=== PATIENT | female | born 1950 | race Caucasian/White ===

== ENCOUNTER → 2021-12-16 10:24 | Outpatient (CLI) | payer OTHER, SELFPAY ==
[2021-12-16 11:37] LABS: Appearance Urine UA CLEAR; Bilirubin Urine UA NEGATIVE (NEGATIVE); Color Urine UA YELLOW; Glucose Urine UA NEGATIVE (Negative); Ketones Urine UA NEGATIVE (NEGATIVE); Leukocyte Esterase Urine UA NEGATIVE (NEGATIVE); Nitrite Urine UA NEGATIVE (Negative); Occult Blood Urine UA NEGATIVE (Negative); Protein Urine UA NEGATIVE (Negative); Urobilinogen Urine UA 0.2 E.U./dL (0.2)
[2021-12-16 11:39] LABS: Add Manual Diff / Slide Review NO; Basophils Absolute Auto 0 /uL (0-100); Basophils Percent Auto 0.4 % (0-2); Eosinophils Absolute Auto 200 /uL (0-450); Eosinophils Percent Auto 2.3 % (2-4); Hematocrit 39.4 % (36-46); Hemoglobin 13.8 g/dL (12.0-16.0); Lymphocytes Absolute Auto 2100 /uL (1100-4500); Lymphocytes Percent Auto 31.6 % (25-40); Mean Corpuscular HGB Conc 34.9 % (30-36); Mean Corpuscular Hemoglobin 32.3 PG (26-34); Mean Corpuscular Volume 92.5 fL (80-100); Monocytes Absolute Auto 400 /uL (0-900); Monocytes Percent Auto 5.9 % (3-14); Neutrophils Absolute Auto 4100 /uL (1500-7000); Neutrophils Percent Auto 59.8 % (50-75); Platelet Count 244 X10^3/uL (150-400); Red Blood Cell Count 4.26 X10^6/uL (4.0-5.2); Red Cell Distribution Width 12.9 % (11.6-14.8); White Blood Cell Count 6.8 X10^3/uL (4.5-11.0)
[2021-12-16 11:42] LABS: Prothrombin Time 10.8 SECONDS (10.1-12.7); pH Urine UA 6.5 (4.5-8.0)
[2021-12-16 11:43] LABS: Bacteria Urine None Seen; Culture Indicated Urine Cult Not Indicated; RBC Urine None Seen (0-5/HPF); Urine Comments Microscopic Normal; WBC Urine None Seen (0-5/HPF)
[2021-12-16 11:45] LABS: PTT Partial Thromboplastin Tim 39 SECONDS (26.4-36.2)
[2021-12-16 11:48] LABS: Hemoglobin A1C% w Est Avg Glu 5.5 % (4.0-6.0)
[2021-12-16 11:51] LABS: Blood Urea Nitrogen 19 mg/dL (7-17); Calcium 9.4 mg/dL (8.4-10.2); Carbon Dioxide 30 mmol/L (22-32); Chloride 103 mmol/L (98-107); Glucose 100 mg/dL (80-110); HEMOLYSIS < 15 (0-50); Potassium 4.1 mmol/L (3.4-5.1); Sodium 141 mmol/L (137-145)
== END ==
LOC: LAB 10:36 → RESP 10:46
PROVIDERS: PCP Internal Medicine; Referring Provider Orthopaedic Surgery; Visit Provider Orthopaedic Surgery
DX: Z01.818 Encounter for other preprocedural examination (principal); Z51.81 Encounter for therapeutic drug level monitoring; R73.9 Hyperglycemia, unspecified; Z01.812 Encounter for preprocedural laboratory examination; N39.0 Urinary tract infection, site not specified
CPT/HCPCS: 36415; 80048; 81001; 83036; 85025; 85610; 85730; 93005; 93010

== ENCOUNTER → 2022-01-16 10:59 | Outpatient (CLI) | payer OTHER, SELFPAY ==
[2022-01-16 14:03] LABS: COVID19 -Nasal RAPID Negative (Negative)
== END ==
PROVIDERS: PCP Internal Medicine; Visit Provider Family Medicine Sleep Medicine
DX: Z20.822 Contact with and (suspected) exposure to COVID-19 (principal)
CPT/HCPCS: 87635; C9803

== ENCOUNTER 2022-01-17 05:59 | Day surgery (SDC) | payer OTHER, SELFPAY ==
[2022-01-13 08:37] VITALS: BMI 33.4
[2022-01-17] VITALS (11 sets, daily range): BP systolic 107–144; BP diastolic 47–75; PULSE 60–85; RESP 12–19; TEMP 35.6–37.3; O2SAT 97–99; BMI 33.1
--- NOTE | 2022-01-17 06:33 | DI.RAD.S_ITS ---
PROCEDURE: XR HIP W PEL IF DONE RT 2V INDICATIONS: GUZMAN post op right TECHNIQUE: AP pelvis and lateral view of the right hip acquired. COMPARISON: None. FINDINGS: Bones: Patient is status post right hip arthroplasty, with hardware components in expected positions. The hip joint appears congruent. The visualized bony structures appear intact. Soft tissues: Overlying postoperative changes are noted. No suspicious soft tissue densities. IMPRESSION: Postoperative changes of total right hip arthroplasty. Dictated by: Ivan Pritchard M.D. on 01/17/2022 at 15:11 Approved by: Ivan Pritchard M.D. on 01/17/2022 at 15:13
[2022-01-17] MEDS: ACETAMINOPHEN 325 MG TABLET 975 MG PO (07:11)
[2022-01-17] MEDS: LACTATED RINGERS 1,000 ML 42 ML IV ×2 (07:20→09:21)
[2022-01-17] MEDS: VANCOMYCIN 1,000 MG/200 ML PIGGYBACK 200 MG IV (07:33)
--- NOTE | 2022-01-17 07:40 | PM.PREOP ---
Pre-operative Note COVID-19 COVID-19 status: Negative Interval Note History & Physical reviewed/Exam performed by Physician: Yes Changes to H&P: No
--- NOTE | 2022-01-17 07:41 | PM.OP.1 ---
Operative Date/Time/Diagnoses Date of procedure: 01/17/22 Time of procedure: 08:00 Pre-op diagnosis: right hip OA Post-op diagnosis: same Procedure & Clinicians Procedure: right total hip arthroplasty Same procedure as scheduled: Yes Indications: The patient has had progressively worsening right hip pain with radiographic changes consistent with arthritis. Non-operative management has failed and the patient has requested total hip replacement. The risks, benefits and alternatives to surgery were discussed with the patient prior to proceeding. Risks discussed included, but were not limited to, failure to relieve pain, leg length discrepancy, dislocation, stiffness, infection, nerve damage, deep venous thrombosis, pulmonary embolism, stroke, coma, heart attack, permanent paralysis and , as well as the potential need for eventual revision of the prosthetic. Surgeon: Tara Bansal Geothermal Field Technician: Oly May Anesthesia Type: General and Spinal Operative Notes Findings: Severe right hip osteoarthritis, adequate stability, adequate bone Closure Type: primary Specimen(s): none sent Prosthetic devices, grafts, tissues, transplants, or devices: Bansal and Nephew size 52 R3 cup, 36 neutral poly liner, size 7 standard offset anthology, 36 x -3 Oxinium head, one 6.5 mm screw Applied: drain(s) Estimated Blood Loss (mL): 250 Blood products transfused: none Procedure in detail: The patient was seen in the pre-operative area, where the patient identified the right hip as the operative site and this was marked with my initials. The patient received pre-operative antibiotics and was taken to the operating room and placed on the operative table in the left lateral decubitus position after satisfactory anesthesia. A bicycle service technician out was performed. The right leg was prepared from the ankle to the iliac crest with ChloroPrep in the usual fashion and draped through sterile drapes. The hip was approached through an approximately 20 cm incision centered over the greater trochanter and curving gently posteriorly as it went proximally. This was carried sharply to the fascia mary jane, which was divided and retracted with a self retaining retractor. The trochanteric bursa was excised with care being taken to avoid the sciatic nerve, which was identified and protected throughout the case. The short external rotators were incised and the capsulomuscular flap was raised and tagged for later repair. The hip was dislocated, and a femoral neck osteotomy performed approximately 15 mm above the lesser trochanter. Retractors were placed around the femur. The canal was opened with a box cutting osteotome, followed by a T handled reamer and a lateralizing reamer. The chili pepper broach was then used, followed by sequential broaching until there was good stability of the broach in the femur. Retractors were placed to expose the acetabulum. The labrum and central soft tissues were removed. Reaming was performed initially going up in 2 mm increments, then 1 mm increments until good bite was obtained with an odd sized reamer. The cup 1 mm larger than the last reamer was then inserted using the appropriate anteversion guides. A trial neutral liner was placed. The broach was placed in the canal. A trial head and neck were then placed and the hip relocated and checked for leg length and stability. An intraoperative film confirmed the component position and no evidence of fracture. The patient was stable in the position of sleep, of squatting, and could be put through a range of motion with 45 degrees internal rotation without dislocation. At 90 degrees flexion, internal rotation to 70? was possible before dislocation. A 6.5 mm screw was used to further stabilized the acetabulum. This was felt to be satisfactory and the appropriate components were opened, and the trials were removed. The acetabular liner was impacted into position. The final stem was then impacted into the prepared femoral canal. The hip was meticulously irrigated with normal saline. Finally the femoral head was impacted onto the stem. The acetabulum was cleared of all material and the hip relocated one final time. The capsulomuscular flap was then repaired to the greater trochanter though an awl hole using the tag sutures. The short external rotators were repaired with a nonabsorbable suture. A deep drain was placed and brought out anteriorly. The fascia mary jane was closed with Vicryl. The subcutaneous layer was closed with barbed sutures and skin [place]. A fran dressing was applied and the patient was taken to recovery having tolerated the procedure well. Complications: none Post-operative Condition: stable Disposition: Acute Care Plan for aftercare: The patient will be maintained on a standard total hip replacement protocol with weight bearing as tolerated and posterior hip precautions. The patient will receive Aspirin and sequential compression devices for DVT prophylaxis. The patient will be discharged home when safe for the home environment.
--- NOTE | 2022-01-17 08:00 | DI.RAD.S_ITS ---
PROCEDURE: XR PELVIS 1-2V INDICATIONS: INNER OP PIC TECHNIQUE: Intra-operative view of the pelvis and hip acquired. COMPARISON: None. FINDINGS: Bones: Intraoperative devices prior to placement of arthroplasty prostheses are in expected positions. No fractures or suspicious bony lesions. Soft tissues: Overlying surgical retractors are present, along with other intraoperative changes. IMPRESSION: Intraoperative views of total right hip replacement. Dictated by: Ivan Pritchard M.D. on 01/17/2022 at 10:16 Approved by: Ivan Pritchard M.D. on 01/17/2022 at 10:17
[2022-01-17] MEDS: TRANEXAMIC ACID 1,000 MG VIAL 2000 MG INJ ×2 (08:03→10:07)
[2022-01-17] MEDS: CEFAZOLIN 2 GM/20 ML SYRINGE IV ×2 (08:05→15:44)
--- NOTE | 2022-01-17 08:30 | SUR.OPER ---
Lateral on padded OR bed. Gel axillary roll. Arms secured on padded armboard with pillow supporting top arm. Padded hip positioner braces x4 - anterior and posterior chest and pelvis. Additional gel pad used anterior pelvis. Gel pad under bottom leg from knee to foot and secured with tape over sheet. Glasses are in glass case and brought back to pre-op from OR and placed in personal belonging bag.
[2022-01-17] MEDS: BUPIVACAINE LIPOSOME 266 MG/20 ML VIAL INJ (09:24)
[2022-01-17] MEDS: BUPIVACAINE 0.25% (PF) 60 ML, EPINEPHrine 0.3 MG INJ (09:26)
[2022-01-17] MEDS: SODIUM CHLORIDE IRRIG SOLUTION 250 ML, POVIDONE-IODINE SPONGE STICKS 1 APPLIC IRR (09:27)
[2022-01-17] MEDS: EPINEPHrine 1 MG/10 ML SYRINGE INJ (09:32)
[2022-01-17] MEDS: ONDANSETRON 4 MG/2 ML INJ IV ×2 (10:51→14:26)
[2022-01-17] MEDS: OXYCODONE/ACETAMINOPHEN 5/325 TABLET 1 TAB PO (10:51)
--- NOTE | 2022-01-17 13:35 | PT.IIE ---
Current Diagnoses Unilateral primary osteoarthritis, right hip (01/17/22) Surgery Performed Operation Date: 01/17/22 07:45 Actual Procedures p Total Hip Arthroplasty(Right) - Tara Bansal MD Medical History (Last Reviewed 01/16/22 @ 08:35 by Gonzalo Maldonado RN) Anesthesia CAD (coronary artery disease) Former smoker HLD (hyperlipidemia) HTN (hypertension) Statin intolerance Physical Therapy Inpatient Evaluation/Re-Eval M1 PT/OT-IP Prior Functional Status Start: 01/17/22 15:20 Freq: NEEDED Status: Active Protocol: Document 01/17/22 13:35 AB (Rec: 01/17/22 15:33 AB [id number]) Medical Review Prior Functional Status Medical History Reviewed Yes Communication able to make needs known Mobility and Gait pt stated that she is independent with all mobilities and ambulation without AD Social History Household Members spouse Living Arrangements House Number of Floors (Floors) One Floor Number of Stairs To Enter/Railing? no steps to enter Home Environment High Toilet,Walk in Shower Home Equipment Front Wheel Walker,Straight Cane,Hand Held Shower,Grab Bars In Shower Additional Social History Comment pt has an adjustable bed. M2 PT-IP Current Condition Start: 01/17/22 15:20 Freq: NEEDED Status: Active Protocol: Document 01/17/22 13:35 AB (Rec: 01/17/22 15:33 AB [email or web address]) Physical Therapy Current Condition Current Condition Evaluation Date 01/17/22 Treatment Diagnosis s/p R GUZMAN posterior approach; difficulty in walking Onset Date 01/17/22 M3 PT-IP Subjective Start: 01/17/22 15:20 Freq: NEEDED Status: Active Protocol: Document 01/17/22 13:35 AB (Rec: 01/17/22 15:33 AB [id number]) Subjective Physical Therapy Visit Type Type Initial Evaluation Visit Start Time 13:35 Visit Stop Time 14:30 Total Visit Minutes 55 Number of FIFTH HAND Visits 0 Physical Therapy Visit Comments Patient Comments agreeable to do PT Therapy Pain Assessment Pain When Pain Assessed At Rest Pain Present Pain Present Pain Reported Location Right Lower Leg Intensity 6 Scale Used Numeric (0 - 10) Pain Management Techniques Distraction,Modification of Treatment,Re-positioning M4 PT-IP Mobility and Gait Start: 01/17/22 15:20 Freq: NEEDED Status: Active Protocol: Document 01/17/22 13:35 AB (Rec: 01/17/22 15:33 AB [id number]) PT-Bed Mobility Assessment Supine to Sit Supine to Sit Standby Assistance Sit to Supine Sit to Supine Moderate Assistance,1 Person Assistance PT-Transfer Assessment Sit to and From Stand Sit to and from Stand Minimal Assistance,Moderate Assistance,1 Person Assistance ,Use of Upper Extremities Equipment Transfer Assistive Device Gait Belt,Front Wheeled Walker Orthotic/Prosthetic Devices or Brace: No Comments Mobility Comments educated pt and spouse regarding hip posterior precautions. BP in supine: 129/66. completed supine to sit SBA. able to sit on EOB SBA. cued for posture. BP in sittin/64. completed sit to stand min to mod A and cues for safety and hip precautions. ambulated in room using FWW min to mod A ~ 25 ft. pt sat back on EOB. c /o nausea. nurse informed. BP checked: 93/54. pt completed sit to supine mod A with LE mobility to bed. positioned pt in bed. BP checked: 105/59 . call light and table placed within reach. Gait Assessment Gait Gait Assistance Required: Minimum Assistance,Moderate Assistance Distance (Feet) 25 Able to Maintain Weight Bearing Status Yes During Gait Assistive Devices Assistive Device Gait Belt,Front Wheeled Walker Orthotic/Prosthetic Devices or Brace: No Gait Deviations General Gait Pattern Decreased Stride Length, Decreased Feet Clearance Factors Limiting Gait Function Factors Limiting Gait Function Decreased Activity Tolerance, Decreased Strength,Limited Range of Motion,Pain,Poor Balance,Poor Safety Awareness PT-Balance Assessment Sitting Balance and Reactions Static Sitting Balance Ability Good Dynamic Sitting Balance Ability Good Standing Balance and Reactions Static Standing Balance Ability Fair Dynamic Standing Balance Ability Fair Device Used FWW M5 PT-IP Objective Assessments Start: 01/17/22 15:20 Freq: NEEDED Status: Active Protocol: Document 01/17/22 13:35 AB (Rec: 01/17/22 15:33 AB [id number]) Orientation Orientation/Cognition Level of Alertness Alert Orientation Name,Place,Situation Language Function Ability No Deficits Noted Safety Awareness Decreased Safety Awareness Gross Range of Motion Lower Extremity ROM Assessment Within Functional Limits Strength Lower Extremity Strength Assessment Right Impaired Hip 3+/5 Knee 4-/5 Coordination Assessment Gross Coordination Gross Coordination WNL Sensation Assessment Sensation Gross Sensation WNL Muscle Tone Muscle Tone WNL Yes M6 PT-IP Treatment Start: 01/17/22 15:20 Freq: NEEDED Status: Active Protocol: Document 01/17/22 13:35 AB (Rec: 01/17/22 15:33 AB [id number]) Physical Therapy Treatment Education Education Provided Precautions,Weight Bearing Status,Post-Op Packet,Safety M7 PT-IP Assessment and Plan Start: 01/17/22 15:20 Freq: NEEDED Status: Active Protocol: Document 01/17/22 13:35 AB (Rec: 01/17/22 15:33 AB [email or web address]) PT Summary Assessment and Plan Potential Rehabilitation Potential Fair Status of Condition at Evaluation Evolving Summary Impairments Pain,ROM,Strength,Balance, Coordination,Sensation,Tone, Cognition,Bed Mobility, Transfers,Gait,Activity Tolerance Assessment Summary pt s/p R GUZMAN posterior approach and just had surgery this morning. pt with decrease BP after ambulation with c/o nausea limiting mobility. pt will likely progress during hospital stay. pt's spouse will assist pt at home and will conduct caregiver training when appropriate. will continue to assess progress. Goals Bed Mobility Goal Independent Transfer Goal Independent,Front Wheeled Walker Gait Goal Independent,Front Wheel Walker Gait Distance 250 Days to Meet Goals 5 Frequency of Treatment Frequency Of Treatment Twice a Day Treatment Plan Physical Therapy Treatment Plan Bed Mobility Training,Transfer Training,Gait Training, Therapeutic Exercise,Balance Retraining,Post Op Education, Discharge Planning,Hot or Cold Pack,Neuromuscular Re-ed, Coordination Retraining,Manual Therapy Precautions Posterior Hip Precautions No Hip Flexion > 90 degrees,No Hip Internal Rotation,No Hip Adduction Weight Bearing Status Weight Bearing Status Weight Bear as Tolerated Allowed Weight Bearing Amount (enter % RLE WBAT or #) (%) Recommendations To Nursing Amount of Assist Needed 1 Person Assist Discharge Recommendations PT Discharge Recommendations Home with Assistance, Outpatient PT Transportation Needs at Discharge Private Vehicle
[2022-01-17] MEDS: LACTATED RINGERS 1,000 ML 125 ML IV ×2 (14:26→22:24)
[2022-01-17] MEDS: OXYCODONE IR 5 MG TABLET PO (15:44)
[2022-01-17] MEDS: ACETAMINOPHEN 325 MG TABLET 650 MG PO ×2 (15:44→21:29)
[2022-01-17] MEDS: DOCUSATE 100 MG CAPSULE PO (21:29)
[2022-01-17] MEDS: MELATONIN 3 MG TABLET PO (21:29)
[2022-01-17] MEDS: diphenhydrAMINE 25 MG TABLET PO (21:29)
[2022-01-17] MEDS: ASPIRIN EC 81 MG TABLET PO (21:29)
[2022-01-17] MEDS: METOPROLOL ER 50 MG TABLET PO (21:30)
[2022-01-18] VITALS: BP 134/64; PULSE 76; RESP 18; TEMP 37.1; O2SAT 97
[2022-01-18 00:10] VITALS: BP 134/64; PULSE 76
[2022-01-18] MEDS: CEFAZOLIN 2 GM/20 ML SYRINGE IV (01:10)
[2022-01-18 04:00] VITALS: BP 120/64; PULSE 78; RESP 19; TEMP 36.7; O2SAT 97
[2022-01-18] MEDS: OXYCODONE IR 5 MG TABLET PO (04:55)
[2022-01-18 04:56] LABS: Hematocrit 33.8 % (36-46); Hemoglobin 11.5 g/dL (12.0-16.0)
--- NOTE | 2022-01-18 07:51 | PM.DS.1 ---
History of Present Illness History of Present Illness Date Patient Seen: 01/18/22 Time Patient Seen: 07:51 Chief complaint: Hip pain Narrative: Patient denies fever or chills. No nausea vomiting. Patient has assistance at home. Discharge Providers Provider Discharge Date: 01/18/22 Primary care physician: Christel Deleon MD Consults: 01/13/22 09:39 Consult to Anesthesiology Routine Comment: Consulting Provider: Anesthesiologist Reason for consultation: Surgeon requested re: Cardiac 01/17/22 06:33 Consult to Anesthesiology Routine Comment: Consulting Provider: Anesthesiologist Reason for consultation: Regional block for post operative pain control 01/17/22 11:19 Consult to Discharge Planning Routine Comment: Consult to Physical Therapy Evaluate & Treat Comment: Physician Instructions: post op GUZMAN protocol Consult to Respiratory Therapy Evaluate & Treat Comment: Physician Instructions: Evaluate and treat Discharge provider: Jean Pierre Gallagher PA-C Summary Hospital Course Discharge Diagnosis: Right hip osteoarthritis Hospital Course: Procedure: right total hip arthroplasty Same procedure as scheduled: Yes Indications: The patient has had progressively worsening right hip pain with radiographic changes consistent with arthritis. Non-operative management has failed and the patient has requested total hip replacement. The risks, benefits and alternatives to surgery were discussed with the patient prior to proceeding. Risks discussed included, but were not limited to, failure to relieve pain, leg length discrepancy, dislocation, stiffness, infection, nerve damage, deep venous thrombosis, pulmonary embolism, stroke, coma, heart attack, permanent paralysis and , as well as the potential need for eventual revision of the prosthetic. Surgeon: Tara Bansal Link Trainer Maintenance Man: Oly May Anesthesia Type: General and Spinal Operative Notes Findings: Severe right hip osteoarthritis, adequate stability, adequate bone Closure Type: primary Specimen(s): none sent Prosthetic devices, grafts, tissues, transplants, or devices: Bansal and Nephew size 52 R3 cup, 36 neutral poly liner, size 7 standard offset anthology, 36 x -3 Oxinium head, one 6.5 mm screw Applied: drain(s) Estimated Blood Loss (mL): 250 Blood products transfused: none Patient admitted to the hospital for right total hip arthroplasty. Patient consented to the same. Patient underwent right total hip arthroplasty by Dr. Bansal on January 17, 2022. Patient back in her room recovering well as in stable condition. Patient will be discharged home today after physical therapy if safe for home environment. Status at Discharge Cognitive/behavioral status at discharge: oriented Functional status at discharge: uses cane/walker Overall status at discharge: patient is progressing back to baseline Exam Vital Signs (past 8 hours): - 01/18/22 00:00 01/18/22 00:10 01/18/22 04:00 Temperature 98.7 F 98.1 F Pulse Rate 76 76 78 Respiratory Rate 18 19 Blood Pressure 134/64 134/64 120/64 Pulse Oximetry 97 97 Oxygen Delivery Method Room Air Oxygen Flow Rate 0 Narrative Exam Narrative: 71-year-old female resting comfortably in bed in no apparent distress. Fran dressing is on and function. Neurovascular status is intact bilateral lower extremities. 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 Discharge Plan Discharge Plan Patient Disposition: Home Discharge orders & Medications Discharge Orders: Discharge (Order); Ordered 01/18/22 Ordered By: Jean Pierre Gallagher Prescriptions: New acetaminophen 325 mg Tablet 650 mg PO TID Qty: 60 0RF aspirin 81 mg Tablet,Delayed Release (Dr/Ec) 81 mg PO DAILY Qty: 60 0RF Rx Instructions: Patient should not start the aspirin if she has started Plavix Continued metoprolol succinate 50 mg Tablet Extended Release 24 Hr 50 mg PO BEDTIME 0RF hydrochlorothiazide 12.5 mg Tablet 12.5 mg PO QAM 0RF melatonin 3 mg Tablet 3 mg PO BEDTIME 0RF diphenhydramine HCl 25 mg Capsule 25 mg PO BEDTIME 0RF naproxen sodium [Aleve] 220 mg Tablet 220 mg PO QPM PRN (Reason: Pain) 0RF Follow up/Referrals: Christel Deleon MD [Primary Care Provider] - Tara Bansal MD [Physician] - As previously scheduled (Follow up with Dr Bansal on 02/01/2022 @ 1:30 pm at [facility]) Diet/Activity/Treatments Diet: Diet as Tolerated Activity: Weight-bearing as tolerated, posterior hip precautions Cold/Heat Therapy: Ice as needed Skin/Wound/Dressing Care Report to your healthcare provider any signs of infection, such as:: chills, fever, increased pain, unusual drainage and unusual redness Dressing: Geoff wrap may be removed in 48-72 hours, leave fran dressing in place. Follow fran dressing instructions Visit Report/Discharge Packet Instructions: DI for Hip Replacement Stand Alone Forms: Surgery Discharge Discharge Data Primary Care Provider: Christel Deleon Attending Provider: Tara Bansal
[2022-01-18 08:00] VITALS: BP 131/56; PULSE 60; RESP 16; O2SAT 96
[2022-01-18 09:10] VITALS: PULSE 63; RESP 14; O2SAT 97
--- NOTE | 2022-01-18 09:42 | PT.IPTN ---
Current Diagnoses Unilateral primary osteoarthritis, right hip (01/17/22) Surgery Performed Operation Date: 01/17/22 07:45 Actual Procedures p Total Hip Arthroplasty(Right) - Tara Bansal MD Physical Therapy Treatment Note M2 PT-IP Current Condition Start: 01/17/22 15:20 Freq: NEEDED Status: Active Protocol: Document 01/17/22 13:35 AB (Rec: 01/17/22 15:33 AB [id number]) Physical Therapy Current Condition Current Condition Evaluation Date 01/17/22 Treatment Diagnosis s/p R GUZMAN posterior approach; difficulty in walking Onset Date 01/17/22 M3 PT-IP Subjective Start: 01/17/22 15:20 Freq: NEEDED Status: Active Protocol: Document 01/18/22 09:18 KS (Rec: 01/18/22 11:59 KS [id number]) Subjective Physical Therapy Visit Type Type Treatment Note Visit Start Time 09:18 Visit Stop Time 09:42 Total Visit Minutes 24 Notes Pt present for caregiver training. Number of ASSISTED LIVING ASSISTANT Visits 1 Physical Therapy Visit Comments Patient Comments agreeable to do PT M4 PT-IP Mobility and Gait Start: 01/17/22 15:20 Freq: NEEDED Status: Active Protocol: Document 01/18/22 09:18 KS (Rec: 01/18/22 11:59 KS [id number]) PT-Bed Mobility Assessment Supine to Sit Supine to Sit Standby Assistance Sit to Supine Sit to Supine Contact Guard Assistance Scooting Scooting to Edge of Bed Contact Guard Assistance Scooting Up and Down in Bed Standby Assistance PT-Transfer Assessment Sit to and From Stand Sit to and from Stand Contact Guard Assistance, Minimal Assistance,1 Person Assistance,Use of Upper Extremities Equipment Transfer Assistive Device Gait Belt,Front Wheeled Walker Orthotic/Prosthetic Devices or Brace: No Transfers Transfer Destination Bed,Toilet Transfer Technique Pt ambulated w/ FWW Transfer Ability Level of Assist Contact Guard Assistance, Minimal Assistance,1 Person Assistance,Use of Upper Extremities Comments Mobility Comments Pt on bed upon arrival w/ in room. SBA for sup<> sit and CGA for scooting EOB. Pt then sit<>stand w/ FWW and CGA/Min A w/ cues for hand placement. She then ambulate to toilet and after voiding used grab bars and CGA to stand. Pt ambulated additional 100 ft w/ FWW SBA w/ good stability and proper use of FWW. Pt ambulated back to bed, demonstrated gait belt application and FWW stabilization and how to assist pt sit<>Stand. Pt performed additional sit<> stand w/ her and then sit<>sup CGA. Good awareness of exercises and precautions. Pt left in bed w/ all needs in reach. Gait Assessment Gait Gait Assistance Required: Standby Assistance Distance (Feet) 100 Able to Maintain Weight Bearing Status Yes During Gait Assistive Devices Assistive Device Gait Belt,Front Wheeled Walker Orthotic/Prosthetic Devices or Brace: No Gait Deviations General Gait Pattern Decreased Stride Length, Decreased Feet Clearance Factors Limiting Gait Function Factors Limiting Gait Function Decreased Activity Tolerance, Decreased Strength,Limited Range of Motion,Pain,Poor Balance,Poor Safety Awareness Comments Gait Comments Stable gait, good use of FWW. Able to ambulate safely w/ FWW SBA. Stair Climbing Assessment Comments Stair Climbing Comments No steps at home. PT-Balance Assessment Sitting Balance and Reactions Static Sitting Balance Ability Good Dynamic Sitting Balance Ability Good Standing Balance and Reactions Static Standing Balance Ability Good Dynamic Standing Balance Ability Good Device Used FWW M5 PT-IP Objective Assessments Start: 01/17/22 15:20 Freq: NEEDED Status: Active Protocol: Document 01/17/22 13:35 AB (Rec: 01/17/22 15:33 AB [id number]) Orientation Orientation/Cognition Level of Alertness Alert Orientation Name,Place,Situation Language Function Ability No Deficits Noted Safety Awareness Decreased Safety Awareness Gross Range of Motion Lower Extremity ROM Assessment Within Functional Limits Strength Lower Extremity Strength Assessment Right Impaired Hip 3+/5 Knee 4-/5 Coordination Assessment Gross Coordination Gross Coordination WNL Sensation Assessment Sensation Gross Sensation WNL Muscle Tone Muscle Tone WNL Yes M6 PT-IP Treatment Start: 01/17/22 15:20 Freq: NEEDED Status: Active Protocol: Document 01/18/22 09:18 KS (Rec: 01/18/22 11:59 KS [id number]) Physical Therapy Treatment Education Education Provided Precautions,Weight Bearing Status,Post-Op Packet,Safety Other Treatments Other Treatment Performed Completed caregiver trg w/ pts . M7 PT-IP Assessment and Plan Start: 01/17/22 15:20 Freq: NEEDED Status: Active Protocol: Document 01/18/22 09:18 KS (Rec: 01/18/22 11:59 KS [id number]) PT Summary Assessment and Plan Potential Rehabilitation Potential Fair Status of Condition at Evaluation Evolving Summary Impairments Pain,ROM,Strength,Balance, Coordination,Sensation,Tone, Cognition,Bed Mobility, Transfers,Gait,Activity Tolerance Assessment Summary Pt SBA to CGA for bed mobility and transfers and SBA for ambulation w/ FWW. Pt has all necessary equipment at home, raised toilets, grab bars, and no steps. She ambulated ~100 ft w/ FWW and her was safely able to apply gait belt and provide guarding and assist for transfers. She is safe to return home when medically stable and will benefit from outpatient therapy which she has scheduled to begin at the end of the week. Goals Bed Mobility Goal Independent Transfer Goal Independent,Front Wheeled Walker Gait Goal Independent,Front Wheel Walker Gait Distance 250 Days to Meet Goals 5 Frequency of Treatment Frequency Of Treatment Twice a Day Treatment Plan Physical Therapy Treatment Plan Bed Mobility Training,Transfer Training,Gait Training, Therapeutic Exercise,Balance Retraining,Post Op Education, Discharge Planning,Hot or Cold Pack,Neuromuscular Re-ed, Coordination Retraining,Manual Therapy Precautions Posterior Hip Precautions No Hip Flexion > 90 degrees,No Hip Internal Rotation,No Hip Adduction Weight Bearing Status Weight Bearing Status Weight Bear as Tolerated Allowed Weight Bearing Amount (enter % RLE WBAT or #) (%) Recommendations To Nursing Amount of Assist Needed 1 Person Assist Discharge Recommendations PT Discharge Recommendations Home with Assistance, Outpatient PT Transportation Needs at Discharge Private Vehicle
[2022-01-18] MEDS: DOCUSATE 100 MG CAPSULE PO (09:55)
[2022-01-18] MEDS: hydroCHLOROthiazide 25 MG TABLET 12.5 MG PO (09:56)
[2022-01-18] MEDS: ACETAMINOPHEN 325 MG TABLET 650 MG PO (09:56)
[2022-01-18] MEDS: ASPIRIN EC 81 MG TABLET PO (09:56)
--- NOTE | 2022-01-18 13:33 | PC.NURSE ---
Pt is A&Ox4. VSS, afebrile on RA. She is cleared by MD Bansal this a.m. to discharge home with her after clearance from PT. Pt with good po intake this a.m. and reports her pain to her R hip is manageable with scheduled medications. She denies needing any prn oxycodone this a.m. as pain is reported at 3-4/10. PT clears patient for discharge and she verbalizes understanding of all discharge instructions, hip precautions, medications, s/sx of infection as well as NOHEMY drain / wound care and follow up appointments. Pt is escorted via w/ch to private vehicle with her at 1045.
== END 2022-01-18 10:45 | disposition home or self-care (01) ==
LOC: OR 06:00 → AC 06:09
PROVIDERS: PCP Internal Medicine; Referring Provider Orthopaedic Surgery; Visit Provider Orthopaedic Surgery
PROC: 0SR90JZ Replacement of Right Hip Joint with Synthetic Substitute, Open Approach (ICD-10-PCS; CPT 27130; principal; 2022-01-17 07:45)
DX: M16.11 Unilateral primary osteoarthritis, right hip (principal); I25.10 Atherosclerotic heart disease of native coronary artery without angina pectoris
CPT/HCPCS: 27130; 36415; 72170; 73502; 85014; 85018; 97116; 97162; 97530; C1776; C9290; J0171; J0690; J1100; J1170; J2405; J2704; J3010